=== PATIENT | female | born 1965 | race Caucasian/White ===

== ENCOUNTER → 2017-08-12 | Outpatient (CLI) | payer MEDICAID ==
[2017-08-12 08:43] LABS: Basophils % (A) 1 %; Eosinophils # (A) 0.1 k/uL (0-0.7); Eosinophils % (A) 1 %; Lymphocytes # (A) 0.9 k/uL (1.0-4.8); Lymphocytes % (A) 22 %; MCH 28.9 pg (25.0-35.0); MCHC 31.7 g/dL (31.0-37.0); MCV 90.9 fL (80.0-100.0); Mean Platelet Volume 7.1; Monocytes # (A) 0.3 k/uL (0-1.0); Monocytes % (A) 7 %; Neutrophils # (A) 2.7 k/uL (1.3-7.7); Neutrophils % (A) 67 %; Platelet Count 236 k/uL (150-450); RBC 4.84 m/uL (3.80-5.40); RDW 13.4 % (11.5-15.5)
[2017-08-12 08:52] LABS: ALT 55 U/L (9-52); AST 31 U/L (14-36); Albumin 4.2 g/dL (3.5-5.0); Alkaline Phosphatase 62 U/L (38-126); Anion Gap 9 mmol/L; Blood Urea Nitrogen 16 mg/dL (7-17); Calcium 9.7 mg/dL (8.4-10.2); Carbon Dioxide 29 mmol/L (22-30); Chloride 104 mmol/L (98-107); Cholesterol 163 mg/dL (<200); Glucose 101 mg/dL (74-99); HDL Cholesterol 62 mg/dL (40-60); LDL Cholesterol,Calculated 85 mg/dL (0-99); Potassium 4.3 mmol/L (3.5-5.1); Sodium 142 mmol/L (137-145); Total Bilirubin 0.5 mg/dL (0.2-1.3); Total Protein 6.7 g/dL (6.3-8.2); Triglycerides 79 mg/dL (<150)
[2017-08-12 09:08] LABS: T4, Free (Free Thyroxine) 0.86 ng/dL (0.78-2.19)
[2017-08-12 19:42] LABS: Hemoglobin A1C 5.2 % (4.0-6.0)
== END | disposition home or self-care (01) ==
LOC: LABWHC1 08:04
PROVIDERS: ATTEND Family Medicine
DX: Z00.00 Encounter for general adult medical examination without abnormal findings (principal); K21.0 Gastro-esophageal reflux disease with esophagitis
CPT/HCPCS: 36415; 80053; 80061; 82306; 83036; 84439; 84443; 85025

== ENCOUNTER → 2017-08-21 | Outpatient (CLI) | payer MEDICAID ==
[2017-08-21 20:34] LABS: Cat Epith & Dander IgE <0.10 kU/L; Dermato. farinae IgE <0.10 kU/L
[2017-08-24 14:25] LABS: Cashew IgE <0.35 kU/L (<0.35); Penicillium notatum IgE Class CLASS 0
== END | disposition home or self-care (01) ==
LOC: LABWHC1 13:03
PROVIDERS: ATTEND Allergy & Immunology
DX: J30.0 Vasomotor rhinitis (principal); T78.05XA Anaphylactic reaction due to tree nuts and seeds, initial encounter
CPT/HCPCS: 36415; 86003

== ENCOUNTER → 2017-11-12 | Outpatient (CLI) | payer MEDICAID | END | disposition home or self-care (01) | LOC: LABWHC1 08:12 | PROVIDERS: ATTEND Obstetrics & Gynecology | DX: L68.0 Hirsutism (principal) | CPT/HCPCS: 36415; 82157; 82627; 83498; 84402; 84403 ==

== ENCOUNTER → 2017-12-29 | Outpatient (CLI) | payer MEDICAID ==
--- NOTE | 2017-12-29 15:30 | XR ---
EXAMINATION TYPE: XR cervical spine w flex/ext DATE OF EXAM: 12/29/2017 TECHNIQUE: AP and lateral views of the cervical spine are submitted as well as extension and flexion views. HISTORY: M54.2 Cervicalgia / M54.12 Radiculopathy COMPARISON: None FINDINGS: There is moderate degenerative narrowing identified at C5-6. At flexion and extension align ment is stable. There is posterior hypertrophic spurring at C5-6 which may result in a degree of the canal stenosis. No evidence for fracture. No subluxation identified or osseous lesion. IMPRESSION: Moderate degenerative disc space narrowing and spondylosis at C5-6.
== END | disposition home or self-care (01) ==
LOC: RADXRMAIN 14:46
PROVIDERS: ATTEND Orthopaedic Surgery Orthopaedic Surgery of the Spine
DX: M48.02 Spinal stenosis, cervical region (principal); M47.812 Spondylosis without myelopathy or radiculopathy, cervical region
CPT/HCPCS: 72052

== ENCOUNTER → 2017-12-30 | Outpatient (CLI) | payer MEDICAID ==
--- NOTE | 2017-12-30 21:53 | MR ---
EXAMINATION TYPE: MR cervical spine wo con DATE OF EXAM: 12/30/2017 COMPARISON: NONE HISTORY: TECHNIQUE: Multiplanar, multisequence images of the cervical spine were acquired. C2-C3: No evidence for degenerative disc disease. No disc bulge/herniation or protrusion. No Canal stenosis. Foramina are patent bilaterally. C3-C4: No evidence for degenerative disc disease. No disc bulge/herniation or protrusion. No Canal stenosis. Foramina are patent bilaterally. C4-C5: No evidence for degenerative disc disease. No disc bulge/herniation or protrusion. No Canal stenosis. Foramina are patent bilaterally. C5-C6: Endplate spurring has moderate anterior thecal sac flattening. This comes in close approximati on with the spinal cord. Cord flattening is not identified. There is some disc space narrowing. Disc desiccation is present. Associated disc material with the endplate spurring is present. There is mode rate left and severe right foraminal narrowing uncovertebral joint hypertrophy. C6-C7: No evidence for degenerative disc disease. No disc bulge/herniation or protrusion. No Canal stenosis. Foramina are patent bilaterally. C7-T1: No evidence for degenerative disc disease. No disc bulge/herniation or protrusion. No Canal stenosis. Foramina are patent bilaterally. Cervical segments are intact. There is normal alignment. Cervical spinal cord is of normal signal. Craniovertebral junction relationships are within normal limits. IMPRESSION: 1. Degenerative disc changes, posterior endplate spurring with moderate anterior thecal sac compressi on at C5-6 level. No stenosis is present. 2. Moderate uncovertebral joint hypertrophy and severe right and moderate left foraminal narrowing C5 -6.
== END | disposition home or self-care (01) ==
LOC: RADMRIMAIN 14:44
PROVIDERS: ATTEND Orthopaedic Surgery Orthopaedic Surgery of the Spine
DX: M99.71 Connective tissue and disc stenosis of intervertebral foramina of cervical region (principal); M47.22 Other spondylosis with radiculopathy, cervical region; G95.29 Other cord compression
CPT/HCPCS: 72141

== ENCOUNTER → 2018-03-24 | Outpatient (CLI) | payer MEDICAID ==
--- NOTE | 2018-03-26 07:24 | MR ---
MRI BRAIN WITH CONTRAST CLINICAL HISTORY: Follow-up white matter changes TECHNIQUE: Multiplanar, multisequence imaging of the brain and brainstem is performed without and wit h IV contrast, 7.5 cc of gadavist is administered intravenously. Demyelinating disease protocol with additional Sagittal Flair sequen ce performed. Pulsation artifact traverses the temporal lobes. Comparison: 04/26/2015 FINDINGS: Temporal lobe lesions have resolved in the interval. Most of the subcortical/juxtacortical lesions vance ve also resolved or improved in the interval. There is a small residual juxtacortical lesion within t he high left frontal lobe measuring 3 mm. Small left external capsule lesion noted measuring 2.2 mm. There are 2 external capsule lesion seen on the right measuring 2.5 mm maximal dimension. No new lesi ons are evident. Diffusion weighted images demonstrate no evidence of a recent infarct or other diffusion abnormality. There is no worrisome extra-axial fluid collection. The ventricular system and cisternal spaces ar e normal in size and appearance. The brain volume is age appropriate. Midline structures demonstrate normal morphology. The craniocervical junction appears within normal limits. Post contrast images demonstrate no abnormal enhancement. Artifactual vascular enhancement a djacent to the medulla. The dural venous sinuses appear patent. The visualized sinuses are clear and the globes are intact. IMPRESSION: 1. Significant interval improvement in overall number and size of lesions. A few tiny lesions persist which are nonspecific.
== END | disposition home or self-care (01) ==
LOC: RADMRIMAIN 14:09
PROVIDERS: ATTEND Family Medicine
DX: G93.89 Other specified disorders of brain (principal)
CPT/HCPCS: 70553; A9581